=== PATIENT | female | born 1945 | race Caucasian/White ===

== ENCOUNTER 2020-08-08 08:30 | Day surgery (SDC) | payer MEDICARE ==
[2020-08-07 10:30] LABS: BASOPHILS % (AUTO) 0.8 % (0-1); EOSINOPHILS # (AUTO) 0.1 X10'3 (0-0.9); EOSINOPHILS % (AUTO) 1.7 % (0-6); HEMOGLOBIN 11.9 g/dl (12.0-16.0); LYMPHOCYTES # (AUTO) 2.1 X10'3 (1.1-4.8); LYMPHOCYTES % (AUTO) 38.4 % (21-51); MEAN CORPUSCULAR HEMOGLOBIN 31.4 PG (27.0-31.0); MEAN CORPUSCULAR HGB CONC 32.2 g/dL (33.0-36.5); MEAN CORPUSCULAR VOLUME 97.5 FL (78-98); MEAN PLATELET VOLUME 8.8 FL (7.4-10.4); MONOCYTES # (AUTO) 0.6 X10'3 (0-0.9); MONOCYTES % (AUTO) 10.1 % (2-12); NEUTROPHILS # (AUTO) 2.7 X10'3 (1.8-7.7); PLATELET COUNT 220 X10'3 (140-440); WHITE BLOOD COUNT 5.5 X10'3 (4.5-11.0)
[2020-08-07 10:42] LABS: ALBUMIN 3.1 G/DL (3.4-5.0); ANION GAP 9 (8-16); BLOOD UREA NITROGEN 11 MG/DL (7-18); BUN/CREATININE RATIO 13.9 (6.6-38.0); CALCIUM 8.6 MG/DL (8.5-10.1); CHLORIDE 110 MMOL/L (99-107); CREATININE 0.79 MG/DL (0.40-0.90); GLUCOSE 92 MG/DL (70-104); POTASSIUM 3.9 MMOL/L (3.5-5.1); SODIUM 148 MMOL/L (135-145); TOTAL CARBON DIOXIDE 29.2 MMOL/L (24-32); eGFR 71 ML/MIN
[2020-08-07 10:44] LABS: PARTIAL THROMBOPLASTIN TIME 27 SECONDS (22-32)
[2020-08-08] VITALS (10 sets, daily range): BP systolic 114–143; BP diastolic 49–105
[~2020-08-08] VITALS: Ht 162.6 cm; Wt 93.5 kg
[2020-08-08] MEDS ORDERED: normal saline 1,000 ML IV SCH (09:05)
[2020-08-08] MEDS ORDERED: diphenhydrAMINE 25mg capsule PO PRN (09:05)
[2020-08-08] MEDS ORDERED: LORazepam 0.5 MG tablet PO PRN (09:05)
[2020-08-08] MEDS ORDERED: SOTA80TA46 PO (09:09)
[2020-08-08] MEDS ORDERED: PANT40TA54 PO (09:09)
[2020-08-08] MEDS ORDERED: ASPI-83 PO (09:09)
[2020-08-08] MEDS ORDERED: B2/V1TAB PO (09:09)
[2020-08-08] MEDS ORDERED: IRON-12 PO (09:09)
[2020-08-08] MEDS ORDERED: AMIT-189 PO (09:09)
[2020-08-08] MEDS ORDERED: ALEN70TA60 PO (09:09)
[2020-08-08] MEDS ORDERED: OMEG1CAP PO (09:09)
[2020-08-08] MEDS ORDERED: LORA-269 PO (09:09)
[2020-08-08] MEDS ORDERED: FEXO180T94 PO (09:09)
[2020-08-08] MEDS ORDERED: ERGO500041 PO (09:09)
[2020-08-08] MEDS ORDERED: ALB0.5UD IH (09:09)
[2020-08-08] MEDS ORDERED: CALC-336 PO (09:09)
[2020-08-08] MEDS ORDERED: MULT-955 PO (09:09)
[2020-08-08] MEDS ORDERED: LIDOcaine/PRILOcaine 5gm cream TP ONE (09:50)
[2020-08-08] MEDS ORDERED: nitroGLYCERIN-Tridil 50MG/D5W 250 ML IV ONE (10:27)
[2020-08-08] MEDS ORDERED: heparin 1,000unit/ml 10ml vial 10 ML ONE (10:28)
[2020-08-08] MEDS ORDERED: iohexol 350MG/ML 100ml bottle IV ONE (10:28)
[2020-08-08] MEDS ORDERED: midazolam 1 mg/ML 2ml injection ONE (10:28)
[2020-08-08] MEDS ORDERED: verapamil 2.5 mg/ml inj IV ONE (10:28)
[2020-08-08] MEDS ORDERED: iohexol 350 MG/ML 50ML vial IV ONE (10:28)
[2020-08-08] MEDS ORDERED: fentaNYL/PF 50MCG/1 ML 2ML syringe ONE (10:28)
[2020-08-08] MEDS ORDERED: LIDOcaine 1% (10mg/ml)w/preservative injection 20ml MDV ONE (10:28)
--- NOTE | 2020-08-08 10:30 | NUR ---
Pt left floor for procedure.
[2020-08-08] MEDS ORDERED: normal saline 1000ml 1,000 ML IV SCH (12:10)
[2020-08-08] MEDS ORDERED: HYDROcodone/acetaminophen 10/325mg tab PO PRN (13:15)
[2020-08-08] MEDS ORDERED: HYDROcodone/acetaminophen 5mg/325mg tablet PO PRN (13:15)
[2020-08-08 16:18] LABS: ISTAT Hct MIX 31 %PCV (35-48); ISTAT O2 SATURATION MIX VENOUS 65 % (60-80); ISTAT SOURCE BLNK
[2020-08-08 16:19] LABS: ISTAT HGB ART 10.9 g/dl (12.0-16.0); ISTAT Hct ART 32 %PCV (35-48); ISTAT O2 SATURATION ARTERIAL 98 % (95-98); ISTAT SOURCE BLNK
[2020-08-08] MEDS ORDERED: ACETYLCYSTEINE 200 MG/1 ML 4 ML ORAL SOLUTION PO SCH (20:00)
== END 2020-08-08 17:00 | disposition home or self-care (01) ==
LOC: SSTAY O 08:30
PROVIDERS: ATTEND Internal Medicine Cardiovascular Disease
DX: R07.9 Chest pain, unspecified (principal); E11.9 Type 2 diabetes mellitus without complications; I35.0 Nonrheumatic aortic (valve) stenosis; I48.91 Unspecified atrial fibrillation; G47.30 Sleep apnea, unspecified; K21.9 Gastro-esophageal reflux disease without esophagitis; E78.5 Hyperlipidemia, unspecified; E66.9 Obesity, unspecified; I50.9 Heart failure, unspecified; Z90.710 Acquired absence of both cervix and uterus; Z98.890 Other specified postprocedural states; Z82.49 Family history of ischemic heart disease and other diseases of the circulatory system; Z88.8 Allergy status to other drugs, medicaments and biological substances; Z95.0 Presence of cardiac pacemaker
CPT/HCPCS: 36415; 76937; 80048; 82803; 85014; 85025; 85610; 85730; 93005; 93460; 93567; 99152; 99153; C1769; C1894; J1644; J2001; J2250; J3010; J7030; Q0163; Q9967; A4620; A5120; A6258; C1751; J3490

== ENCOUNTER 2020-10-22 14:42 | Outpatient (CLI) | payer MEDICARE ==
[~2020-10-22 14:42] MED LIST: ALB0.5UD IH; ALEN70TA60 PO; AMIT-189 PO; ASPI-83 PO; CALC-336 PO; ERGO500041 PO; FEXO180T94 PO; IRON-12 PO; LORA-269 PO; MULT-955 PO; OMEG1CAP PO; PANT40TA54 PO; SOTA80TA46 PO
== END 2020-10-22 23:59 | disposition home or self-care (01) ==
LOC: CARD DIAG 14:42
PROVIDERS: ATTEND Internal Medicine Cardiovascular Disease
DX: I08.1 Rheumatic disorders of both mitral and tricuspid valves (principal)
CPT/HCPCS: 93005; 93308

== ENCOUNTER 2021-08-12 11:11 | Day surgery (SDC) | payer MEDICARE ==
[~2021-08-12] VITALS: Ht 157.5 cm; Wt 89.9 kg
[2021-08-12] VITALS (9 sets, daily range): BP systolic 126–155; BP diastolic 66–99
[~2021-08-12 11:11] MED LIST changes: -OMEG1CAP PO; +OMEG1CAP61 PO
[2021-08-12] MEDS ORDERED: ceFAZolin inj. 2,000 MG in normal saline soln 50 ML IV ONE (11:45)
[2021-08-12] MEDS ORDERED: normal saline 1000ml 1,000 ML IV PRN (11:45)
[2021-08-12] MEDS ORDERED: ceFAZolin 2gm in dextrose, iso 50 ML IV ONE (11:46)
[2021-08-12] MEDS ORDERED: normal saline 1,000 ML IV SCH (11:50)
[2021-08-12] MEDS ORDERED: acetylcysteine 200 MG/ml 4ml vial PO PRN (11:50)
[2021-08-12] MEDS ORDERED: diphenhydrAMINE 25mg capsule PO PRN (11:50)
[2021-08-12] MEDS ORDERED: ASPI81TA52 PO (11:53)
[2021-08-12 12:26] LABS: BASOPHILS % (AUTO) 0.6 % (0-1); EOSINOPHILS # (AUTO) 0.1 X10'3 (0-0.9); EOSINOPHILS % (AUTO) 0.8 % (0-6); HEMATOCRIT 37.5 % (35.0-45.0); HEMOGLOBIN 12.1 g/dl (12.0-16.0); LYMPHOCYTES # (AUTO) 1.9 X10'3 (1.1-4.8); MEAN CORPUSCULAR HEMOGLOBIN 31.1 PG (27.0-31.0); MEAN CORPUSCULAR HGB CONC 32.2 g/dL (33.0-36.5); MEAN CORPUSCULAR VOLUME 96.4 FL (78-98); MEAN PLATELET VOLUME 9.3 FL (7.4-10.4); MONOCYTES # (AUTO) 0.5 X10'3 (0-0.9); MONOCYTES % (AUTO) 6.9 % (2-12); NEUTROPHILS # (AUTO) 4.4 X10'3 (1.8-7.7); NEUTROPHILS % (AUTO) 64.7 % (42-75); PLATELET COUNT 181 X10'3 (140-440); RED BLOOD COUNT 3.89 X10'6 (4.20-5.60); RED CELL DISTRIBUTION WIDTH 14.2 % (11.5-14.5); WHITE BLOOD COUNT 6.9 X10'3 (4.5-11.0)
[2021-08-12] MEDS ORDERED: LIDOcaine/PRILOcaine 5gm cream TP ONE (12:30)
[2021-08-12 12:33] LABS: ALBUMIN 3.2 G/DL (3.4-5.0); ANION GAP 7 (8-16); BLOOD UREA NITROGEN 14 MG/DL (7-18); BUN/CREATININE RATIO 20.6 (6.6-38.0); CALCIUM 8.3 MG/DL (8.5-10.1); CHLORIDE 105 MMOL/L (99-107); CREATININE 0.68 MG/DL (0.40-0.90); GLUCOSE 87 MG/DL (70-104); SODIUM 142 MMOL/L (135-145); TOTAL CARBON DIOXIDE 30.3 MMOL/L (24-32); eGFR 84 ML/MIN
[2021-08-12 12:38] LABS: APTT 29 SECONDS (22-32)
[2021-08-12] MEDS ORDERED: LIDOcaine 1% (10mg/ml)w/preservative inj. 20ml MDV ONE (13:04)
[2021-08-12] MEDS ORDERED: fentaNYL/PF 50MCG/1 ML 2ML syringe ONE (13:04)
[2021-08-12] MEDS ORDERED: nitroGLYCERIN-Tridil 50MG/D5W 250 ML IV ONE (13:04)
[2021-08-12] MEDS ORDERED: midazolam 1 mg/ML 2ml injection ONE ×2 (13:04→14:55)
[2021-08-12] MEDS ORDERED: verapamil 2.5 mg/ml inj IV ONE (13:04)
[2021-08-12] MEDS ORDERED: iohexol 350 MG/ML 50ML vial IV ONE (13:05)
[2021-08-12] MEDS ORDERED: heparin 1,000unit/ml 10ml vial 0 ML ONE (13:05)
[2021-08-12] MEDS ORDERED: iohexol 350MG/ML 100ml bottle IV ONE (13:05)
[2021-08-12] MEDS ORDERED: LIDOcaine 1% W/epiNEPHrine 1:100,000 20ml vial ONE (13:06)
[2021-08-12] MEDS ORDERED: ceFAZolin 1000mg inj ONE (13:07)
[2021-08-12] MEDS ORDERED: normal saline 1000ml 1,000 ML IV SCH (16:00)
[2021-08-12] MEDS ORDERED: HYDROcodone/acetaminophen 10/325mg tab PO PRN (16:05)
[2021-08-12] MEDS ORDERED: HYDROcodone/acetaminophen 5mg/325mg tablet PO PRN (16:05)
[2021-08-12] MEDS ORDERED: vancomycin/NS 1 GM ADD-VANTAGE 250 ML IV ONE (16:10)
== END 2021-08-12 20:05 | disposition home or self-care (01) ==
LOC: SSTAY O 11:11
PROVIDERS: ATTEND Internal Medicine Cardiovascular Disease
DX: Z45.010 Encounter for checking and testing of cardiac pacemaker pulse generator [battery] (principal); R94.39 Abnormal result of other cardiovascular function study; I25.10 Atherosclerotic heart disease of native coronary artery without angina pectoris; I11.0 Hypertensive heart disease with heart failure; I50.9 Heart failure, unspecified; I35.0 Nonrheumatic aortic (valve) stenosis; I48.0 Paroxysmal atrial fibrillation; E78.5 Hyperlipidemia, unspecified; E11.9 Type 2 diabetes mellitus without complications; G47.30 Sleep apnea, unspecified; Z95.2 Presence of prosthetic heart valve; Z90.710 Acquired absence of both cervix and uterus; Z79.01 Long term (current) use of anticoagulants; Z79.899 Other long term (current) drug therapy; Z98.890 Other specified postprocedural states; Z98.84 Bariatric surgery status; Z88.8 Allergy status to other drugs, medicaments and biological substances; Z83.6 Family history of other diseases of the respiratory system; Z82.49 Family history of ischemic heart disease and other diseases of the circulatory system
CPT/HCPCS: 33228; 36415; 80048; 85025; 85610; 85730; 93005; 93458; 99152; 99153; C1769; C1785; C1894; J0690; J1644; J2250; J3010; J3370; J3490; J7030; Q0163; Q9967; A4620; A6258

== ENCOUNTER 2021-09-26 12:49 | Outpatient (CLI) | payer MEDICARE ==
[~2021-09-26] VITALS: Ht 157.5 cm; Wt 89.6 kg
[~2021-09-26 12:49] MED LIST changes: -ASPI-83 PO; +ASPI81TA52 PO
[2021-09-26 14:54] VITALS: BP 149/35
--- NOTE | 2021-09-26 14:55 | NUR ---
Patient was seen today for TAVR follow-up with Dr. Nuria Wood. KCQ12 completed. Walk test completed. Vital signs measured. Echo and EKG reviewed with patient along with current condition of patients symptoms.
== END 2021-09-26 23:59 | disposition home or self-care (01) ==
LOC: CARD DIAG 12:49
PROVIDERS: ATTEND Internal Medicine Cardiovascular Disease
DX: Z48.812 Encounter for surgical aftercare following surgery on the circulatory system (principal); I34.0 Nonrheumatic mitral (valve) insufficiency; I51.7 Cardiomegaly; I25.2 Old myocardial infarction; Z95.2 Presence of prosthetic heart valve
CPT/HCPCS: 93005; 93306

== ENCOUNTER 2022-09-12 09:02 | Day surgery (SDC) | payer MEDICARE ==
[2022-09-11 11:39] LABS: BASOPHILS % (AUTO) 0.6 % (0-1); EOSINOPHILS # (AUTO) 0.1 X10'3 (0-0.9); EOSINOPHILS % (AUTO) 1.2 % (0-6); HEMATOCRIT 36.1 % (35.0-45.0); HEMOGLOBIN 11.7 g/dl (12.0-16.0); LYMPHOCYTES # (AUTO) 2.1 X10'3 (1.1-4.8); LYMPHOCYTES % (AUTO) 32.5 % (21-51); MEAN CORPUSCULAR HEMOGLOBIN 31.3 PG (27.0-31.0); MEAN CORPUSCULAR HGB CONC 32.3 g/dL (33.0-36.5); MEAN CORPUSCULAR VOLUME 97.1 FL (78-98); MEAN PLATELET VOLUME 9.2 FL (7.4-10.4); MONOCYTES # (AUTO) 0.6 X10'3 (0-0.9); NEUTROPHILS # (AUTO) 3.6 X10'3 (1.8-7.7); NEUTROPHILS % (AUTO) 56.7 % (42-75); PLATELET COUNT 169 X10'3 (140-440); RED BLOOD COUNT 3.72 X10'6 (4.20-5.60); RED CELL DISTRIBUTION WIDTH 14.2 % (11.5-14.5); WHITE BLOOD COUNT 6.4 X10'3 (4.5-11.0)
[2022-09-11 11:47] LABS: ALBUMIN 3.2 G/DL (3.4-5.0); ANION GAP 5 (8-16); BLOOD UREA NITROGEN 8 MG/DL (7-18); BUN/CREATININE RATIO 12.9 (10.0-20.0); CALCIUM 8.6 MG/DL (8.5-10.1); CHLORIDE 107 MMOL/L (99-107); CREATININE 0.62 MG/DL (0.40-0.90); GLUCOSE 97 MG/DL (70-104); SODIUM 143 MMOL/L (135-145); TOTAL CARBON DIOXIDE 31.1 MMOL/L (24-32); eGFR > 90 ML/MIN
[2022-09-11 11:48] LABS: APTT 28 SECONDS (22-32)
[2022-09-12] VITALS (8 sets, daily range): BP systolic 117–156; BP diastolic 60–84
[~2022-09-12] VITALS: Ht 157.5 cm; Wt 87.0 kg
[~2022-09-12 09:02] MED LIST changes: -AMIT-189 PO; +AMIT50TA15 PO
[2022-09-12] MEDS ORDERED: normal saline 1,000 ML IV SCH (09:20)
[2022-09-12] MEDS ORDERED: diphenhydrAMINE 25mg capsule PO PRN (09:20)
[2022-09-12] MEDS ORDERED: LORazepam 0.5 MG tablet PO PRN (09:30)
[2022-09-12] MEDS ORDERED: ASPI-1264 PO (10:27)
[2022-09-12] MEDS ORDERED: OMEG-5 PO (10:27)
[2022-09-12] MEDS ORDERED: OMEG1CAP61 PO (10:38)
[2022-09-12] MEDS ORDERED: FERR236T3 PO (10:38)
[2022-09-12] MEDS ORDERED: OSC500T PO (10:38)
[2022-09-12] MEDS ORDERED: AMIT50TA15 PO (10:38)
[2022-09-12] MEDS ORDERED: nitroGLYCERIN-Tridil 50MG/D5W 250 ML IV ONE (12:34)
[2022-09-12] MEDS ORDERED: iohexol 350 MG/ML 50ML vial IV ONE (12:35)
[2022-09-12] MEDS ORDERED: LIDOcaine 1% (10mg/ml) 2ml vial ONE (12:35)
[2022-09-12] MEDS ORDERED: midazolam 1 mg/ML 2ml injection ONE (12:35)
[2022-09-12] MEDS ORDERED: heparin 1,000unit/ml 10ml vial 10 ML ONE (12:35)
[2022-09-12] MEDS ORDERED: verapamil 2.5 mg/ml inj IV ONE (12:35)
[2022-09-12] MEDS ORDERED: iohexol 350MG/ML 100ml bottle IV ONE (12:35)
[2022-09-12] MEDS ORDERED: fentaNYL/PF 50MCG/1 ML 2ML syringe ONE (12:35)
== END 2022-09-12 17:00 | disposition home or self-care (01) ==
LOC: SSTAY O 09:02
PROVIDERS: ATTEND Internal Medicine Cardiovascular Disease
DX: I25.10 Atherosclerotic heart disease of native coronary artery without angina pectoris (principal); I49.5 Sick sinus syndrome; I48.0 Paroxysmal atrial fibrillation; E78.5 Hyperlipidemia, unspecified; I11.0 Hypertensive heart disease with heart failure; I50.9 Heart failure, unspecified; I35.0 Nonrheumatic aortic (valve) stenosis; J45.909 Unspecified asthma, uncomplicated; K21.9 Gastro-esophageal reflux disease without esophagitis; E66.9 Obesity, unspecified; Z68.35 Body mass index [BMI] 35.0-35.9, adult; G47.30 Sleep apnea, unspecified; Z95.0 Presence of cardiac pacemaker; Z98.84 Bariatric surgery status; Z95.2 Presence of prosthetic heart valve; Z90.710 Acquired absence of both cervix and uterus; Z98.890 Other specified postprocedural states; Z88.8 Allergy status to other drugs, medicaments and biological substances; Z79.82 Long term (current) use of aspirin; Z79.899 Other long term (current) drug therapy; Z82.49 Family history of ischemic heart disease and other diseases of the circulatory system
CPT/HCPCS: 36415; 76937; 80048; 85025; 85610; 85730; 93005; 93458; 99152; 99153; A6258; J1644; J2250; J3010; J3490; J7030; Q0163; Q9967; A6402; C1725; C1894

== ENCOUNTER 2025-03-07 02:33 | Observation (INO) | payer MEDICARE ==
[2025-03-07] VITALS (20 sets, daily range): BP systolic 92–181; BP diastolic 29–58; PULSE 60–72; RESP 14–24; TEMP 97.3–97.7; O2SAT 95–100
[~2025-03-07] VITALS: Ht 157.5 cm; Wt 81.0 kg
[~2025-03-07 02:33] MED LIST changes: +ASPI-1264 PO; -ASPI81TA52 PO; -CALC-336 PO; +ERGO125018 PO; -ERGO500041 PO; +FERR236T3 PO; -FEXO180T94 PO; -IRON-12 PO; +OMEG-5 PO; +OSC500T PO
--- NOTE | 2025-03-07 03:16 | ELECTROCARDIOGRAPH REPORT ---
[facility] Test Date: 2025-03-07 Test Time: 03:14:30 Pat Name: RESHMA BLAKELY Department: [facility]-ER Patient ID: [id number] Room: [place] [address] Gender: F Engineering Mgr: RAMON : 1945 Requested By: MEHRAN ESCOBAR Order Number: [id number] Reading MD: Dr. Hayes Serrano Measurements Intervals [place] Rate: 67 P: 0 DC: 221 QRS: 36 QRSD: 118 T: 59 QT: 413 QTc: 436 Interpretive Statements Atrial-paced complexes Prolonged DC interval Nonspecific intraventricular conduction delay Anterior infarct, old Electronically Signed On 03-07-2025 20:42:[address] Hayes Serrano Please click the below link to view image of tracing.
--- NOTE | 2025-03-07 03:31 | RADIOLOGY REPORT ---
CHEST RADIOGRAPH Indication: chest pain Technique: Single frontal view of the chest was obtained COMPARISON: CHEST,SINGLE VIEW on DOS: 09/28/20, CHEST,TWO VIEWS on DOS: 09/20/20, CHEST,TWO VIEWS on DOS: 08/20/20 FINDINGS: Lines and Tubes: None. Left anterior chest wall cardiac pacing device. Lungs: Clear Pleura: No effusion. No pneumothorax. Cardiomediastinal contours: Unremarkable Bones: Unremarkable IMPRESSION: 1. No acute disease.
[2025-03-07 03:37] LABS: MEAN PLATELET VOLUME 8.3 FL (7.4-10.4); RED CELL DISTRIBUTION WIDTH 16.6 % (11.5-14.5)
--- NOTE | 2025-03-07 03:42 | Physician Documentation ---
History of Present Illness ~ Chief Complaint: Chest Pain Stated Complaint: CHEST PAINS M ALS Time Seen by MD: 02:39 Primary Medical Doctor: Dr. Iqbal Mode of Arrival: EMS HPI Patient reports chest pain started 03/06 @1400 starting on left side of chest that was stabbing and radiating to her left shoulder and up to her jaw. She was BIB EMS from [facility] in [place] where there was a concern for unstable angina. No reported chest pain at this time. Patient recently had bronchitis/PNA and has been on steroids, just finished antibiotics. Patient of [place]. Medication Reconciliation Allergies: Coded Allergies: ibuprofen (Verified Allergy, Unknown, 08/08/20) montelukast (Verified Allergy, Unknown, 08/08/20) Scheduled Alendronate Sodium* (Fosamax*), 1 TAB PO Q7D, (Reported) Amitriptyline Hcl* (Elavil*), 1 TAB PO HS, (Reported) Aspirin* (Aspirin*), 1 TAB PO DAILY, (Reported) Calcium Carbonate* (Oscal*), 1 TAB PO DAILY, (Reported) Docosahexanoic Acid/Epa (Fish Oil 1,000 Mg Softgel), 1 CAP PO DAILY, (Reported) Ergocalciferol (Vitamin D2) (Vitamin D2), 1 CAP PO Q7D, (Reported) Ferrous Gluconate (Iron), 1 TAB PO DAILY, (Reported) Multivitamin (Daily Value), 1 TAB PO DAILY, (Reported) [place]-3 Acid Ethyl Esters* (Lovaza*), 1 CAP PO DAILY, (Reported) Pantoprazole Sodium (Pantoprazole Sodium), 1 TAB PO DAILY, (Reported) Sotalol HCl (Sotalol), 1 TAB PO Q12H, (Reported) Scheduled PRN Albuterol Sulfate Nebs* (Proventil Nebs*), 2.5 MG IH Q4H PRN for SOB or wheezing, (Reported) Lorazepam (Ativan), 1 TAB PO HS PRN for sleep, (Reported) Review of Systems All Other Systems at this time: Reviewed and Negative Physical Exam Vital Signs: RN Vital Signs have been reviewed: Yes, Temperature: 98.0, Source: Oral, Heart Rate: 60, Respiratory Rate: 16, BP: 125/56, Pulse Oximetry: 98, Weight: 81.820 Oxygen Flow Rate: 0 Physical Exam General: Alert, no apparent distress. Neck: Full range of motion. Respiratory: Lungs clear, no respiratory distress. Chest: No accessory muscle use. Cardiovascular: Regular rate and rhythm, no murmurs. Gastrointestinal: Soft,TTP, nondistended. Bowels sounds present. Extremities: Normal range of motion, no deformity. Neurologic: Oriented x4. Psychiatric: Normal mood and affect. Skin: Normal color, warm and dry. No edema, no ecchymosis. Progress Results/Orders Results/Orders Orders - MEHRAN ESCOBAR MD Monitor (03/07/25 03:03) Saline Lock (03/07/25 03:03) Oxygen (03/07/25 03:03) Hs Troponin I W Calculations (03/07/25 05:03) Hs Troponin I W Calculations (03/07/25 06:03) Chest,Single View (03/07/25 03:20) Completed Orders - MEHRAN ESCOBAR MD Cbc/Diff (03/07/25 03:03) BMP (03/07/25 03:03) PBNP (03/07/25 03:03) Electrocardiogram (03/07/25 03:03) Hs Troponin I W Calculations (03/07/25 03:03) Chest,Single View (03/07/25 03:20) Lipid Panel (03/07/25 03:24) Vital Signs 03/07/25 03/07/25 03/07/25 03/07/25 02:39 02:49 03:19 03:50 Temp 98.0 Pulse 62 60 63 Resp 20 12 16 16 B/P (MAP) 125/56 125/56 (79) 114/48 (70) Pulse Ox 98 98 100 O2 Flow Rate 0 03/07/25 04:00 Pulse 60 Resp 16 B/P (MAP) 131/53 (79) Pulse Ox 100 Laboratory Tests Test 03/07/25 03:24 White Blood Count 6.6 Red Blood Count 3.41 L Hemoglobin 10.5 L Hematocrit 31.8 L Mean Corpuscular Volume 93.0 Mean Corpuscular Hemoglobin 30.6 Mean Corpuscular Hemoglobin Concent 32.9 L Red Cell Distribution Width 16.6 H Platelet Count 215 Mean Platelet Volume 8.3 Neutrophils (%) (Auto) 57.3 Lymphocytes (%) (Auto) 31.8 Monocytes (%) (Auto) 8.7 Eosinophils (%) (Auto) 1.1 Basophils (%) (Auto) 1.1 H Neutrophils # (Auto) 3.8 Lymphocytes # (Auto) 2.1 Monocytes # (Auto) 0.6 Eosinophils # (Auto) 0.1 Basophils # (Auto) 0.1 CBC Comment Sodium Level 145 Potassium Level 3.9 Chloride Level 111 H Carbon Dioxide Level 30.9 Anion Gap 3 L Blood Urea Nitrogen 7 Creatinine 0.64 Estimated GFR/1.73 m2 89 BUN/Creatinine Ratio 10.9 Glucose Level 98 Calcium Level 7.9 L Troponin I High Sensitivity 13 Pro-B-Type Natriuretic Peptide 328 Albumin 2.6 L Triglycerides Level 92 Cholesterol Level 120 LDL Cholesterol 65 HDL Cholesterol 43 Cholesterol/HDL Ratio 2.8 Chemistry Comments Medical Decision Making Additional information obtaine: N/A Findings 80 year old female with chest pain, resolved. Care transferred to hospitalist. Workup here negative. Heart Score: 68327 Differential Dx:Considerations: Include: angina, chest wall pain, herpes zoster, myocardial infarction, pleuritis, pancreatitis, pneumonia, pneumothorax, pulmonary embolus, other Departure Disposition: 09 ADMITTED INPATIENT Admitted to Inpatient Unit: to hospitalist Admission Level of Care: Med/Surg with Tele Impression: Primary Impression: Chest pain Discharge Instructions: Nonspecific Chest Pain, Adult Referrals: NO PRIMARY CARE PROVIDER (PCP) Education Educated: Patient Educated regarding: diagnosis, treatment, prognosis, need for follow up Signature Scribe Signature: . Attestation: MEHRAN RODRIGUEZ MD Mar 07, 2025 03:42
[2025-03-07 04:00] LABS: CREATININE 0.64 MG/DL (0.40-0.90); PRO BRAIN NATRIURETIC PEPTIDE 328 PG/ML (0-450); TOTAL CARBON DIOXIDE 30.9 MMOL/L (24-32); eCRCL 55 ML/MIN; eGFR 89 ML/MIN
[2025-03-07] MEDS ORDERED: mag hydrox/Alum hydrox/simeth 30ml oral suspension PO PRN (04:15)
[2025-03-07] MEDS ORDERED: magnesium hydroxide 30ml (MOM) UD suspension PO PRN (04:15)
[2025-03-07] MEDS ORDERED: magnesium sulf-water 2g/50mL 50 ML IV PRN (04:15)
[2025-03-07] MEDS ORDERED: HYDROcodone/acetaminophen 5mg/325mg tablet PO PRN (04:15)
[2025-03-07] MEDS ORDERED: potassium Cl 40MEQ/1/2NS 520ml 520 ML IV PRN (04:15)
[2025-03-07] MEDS ORDERED: magnesium Cl slow-release 64mg tablet PO PRN (04:15)
[2025-03-07] MEDS ORDERED: magnesium sulf-water 4G/100mL 100 ML IV PRN (04:15)
[2025-03-07] MEDS ORDERED: potassium Cl 20 mEq SR tablet PO PRN ×2 (04:15)
--- NOTE | 2025-03-07 04:18 | HISTORY AND PHYSICAL-Residence ---
History & Physical Providers to CC Resident Creating Document: TAYLOR BURGOS, RES CC: BARON WASHINGTON MD ~ History of Present Illness Primary Medical Doctor: Dr. Iqbal Reason for Admit\Complaint: Chest pain History of Present Illness An 80-year-old female patient with a medical history of asthma, atrial fibrillation (on Eliquis), TAVR, and a pacemaker was transferred from [facility]. According to the patient, she experienced shortness of breath, palpitations, and chest pain while driving, and she also felt lightheaded. She returned home, hoping her symptoms would improve, but while cooking, she experienced the pain again and decided to visit the emergency department at [facility]. ED course in [facility]: The patient reported chest pain, rating it as 6/10, with radiation to her left shoulder and she was given two sublingual nitrates, which relieved her pain. She also received a full dose of aspirin in the emergency department. The evaluation for her chest pain included serial troponin tests, which were negative, and an ECG that showed no acute changes. A chest X-ray reported cardiomegaly with no obvious effusion or infiltrates. The patient expressed a desire to be transferred to our hospital because she felt more comfortable with Dr. Iqbal, her check totaler. Presentation to our hospital, patient denied any chest pain on arrival. Serial troponins were negative. As per patient, she underwent stress testing a Dr. Iqbal's clinic three months ago which was negative. The patient lives alone in her house and normally mobilizes independently. Her primary care physician is from [facility]. Allergies: Coded Allergies: ibuprofen (Verified Allergy, Unknown, 08/08/20) montelukast (Verified Allergy, Unknown, 08/08/20) Home Medications Home Medications Active Reported Oscal* (Calcium Carbonate) 500 Mg Tablet 1 Tab PO DAILY Lovaza* ([place]-3 Acid Ethyl Esters*) 1 Gm Capsule 1 Cap PO DAILY Iron (Ferrous Gluconate) 236 Mg Tablet 1 Tab PO DAILY 30 Days Elavil* (Amitriptyline HCl) 50 Mg Tablet 1 Tab PO HS Fish Oil 1,000 Mg Softgel (Docosahexanoic Acid/Epa) 1 Each Capsule 1 Cap PO DAILY 30 Days WITH MEALS Aspirin* (Aspirin) 325 Mg Tablet 1 Tab PO DAILY 30 Days Proventil Nebs* (Albuterol) 2.5 Mg/0.5 Ml Vial.neb 2.5 Mg IH Q4H PRN Sotalol (Sotalol HCl) 80 Mg Tablet 1 Tab PO Q12H 30 Days Fosamax* (Alendronate Sodium) 70 Mg Tablet 1 Tab PO Q7D 28 Days in the morning, at least 30 minutes before the first food, beverage, or medication of the day Pantoprazole Sodium 40 Mg Tablet.dr 1 Tab PO DAILY 30 Days Vitamin D2 (Ergocalciferol (Vitamin D2)) 1,250 Mcg Capsule 1 Cap PO Q7D 28 Days Daily Value (Multivitamin) 1 Each Tablet 1 Tab PO DAILY 30 Days Ativan (Lorazepam) 1 Mg Tablet 1 Tab PO HS PRN 30 Days Past Medical History Past Medical History TAVR-four years ago Atrial fibrillation on Eliquis Pacemaker by Dr. Iqbal 10 years ago Sleep apnea Asthma Bilateral knees and hip arthritis Dry eyes Osteoporosis Fibromyalgia Past Surgical History Surgical History Comment Gastrectomy 18 years ago Bilateral carpal tunnel surgery Hysterectomy Cataract Left elbow surgery Hernia repair Past Social History Social History Comment Patient denied any alcohol/tobacco use/illicit drug use ROS All Other Systems: Reviewed and Negative ROS Constitutional: No fever, dizziness, no weakness, no decrease in appetite HEENT: Normal vision. No sore throat, epistaxis, tinnitus Cardiovascular: No chest pain/discomfort, palpitations, syncope. no pedal edema Respiratory: No sob, cough,hemoptysis Gastrointestinal: No abdominal pain, nausea, vomiting. No diarrhea, melena. Genitourinary: No frquency, urgency, incontinence, nocturia. No dysuria, hematuria Musculoskeletal: Normal, no pains Endocrine: No fatigue, polydipsia, polyuria. No heat or cold intolerance Neurologic: No headache, vertigo. No weakness, numbness or tingling of extremities Psychiatric: No hallucinations/delusions, no anhedonia, no suicidal ideation Hematologic: No bruises Exam Vitals: Vital Signs Date Time Temp Pulse Resp B/P (MAP) Pulse Ox O2 Delivery O2 Flow Rate FiO2 03/07/25 03:50 63 16 114/48 (70) 100 03/07/25 02:49 0 03/07/25 02:39 98.0 General: General: Awake, oriented to person, place and time HEENT: Conjunctive are pale, sclerae clear, no icterus, pupil is equal in both sides, reactive to light, no ear discharge, no pharyngeal erythema or an edema. Neck: Supple, no JVD, no lymphadenopathy and thyromegaly. Chest: Equal air entry on both lungs, no additional sounds no rhonchi no wheezing at the moment. Left-sided pacemaker in place Cardiovascular: S1-S2 regular sinus rhythm and, regular rate, no gallops, no rubs, no murmurs Abdomen: No visible peristalsis, Bowel sounds present on auscultation, soft, no tenderness, no guarding, no rigidity. Abdominal scar post gastrectomy Extremities: No obvious deformities, no pitting edema bilaterally, capillary refill intact, peripheral pulsations are intact on both sides Neurologic: Mental status: alert and conscious, oriented to place, person and time, preserved memory, normal speech. Cranial nerves I-XII: Normal. Motor system: Preserved power, coordination, no evidenced involuntary movements, strength 5/5 in four extremities. Sensory system: Preserved temperature, pain and vibration sensation. 2+ deep tendon reflexes in biceps, triceps, quadriceps. Negative Babinski. Cerebellar: No nystagmus, dysdiadochokinesia, normal [id number] testing. Musculoskeletal: No joint swelling, deformities, inflammations, and no scoliosis and back tenderness Skin: Warm and dry. Dry oral mucosa. Diagnostic Data Last Recorded Lab Results: 03/07/2532303/07/25323 Advance Care Planning Advanced Care plannin - 30 Minutes (Spent 17 minutes discussing advanced care directive/resuscitative methods patient decided she wanted to be full code) Additional Plan Assessment An 80-year-old female patient with a medical history of asthma, atrial fibrillation (on Eliquis), TAVR, and a pacemaker was transferred from [facility]. She is currently being evaluated for chest pain Chest pain-rule out ACS heart score three(low risk) Currently she reports no chest pain Serial troponins negative at [place], troponins negative in our hospitalist as well;pt recieved full dose of aspirin 325mg and 2 doses of NTG which relived her pain Chest x-ray normal, proBNP normal; EKG showed prolonged RI interval and atrial paced complexes, no acute ST segment elevation Stress test three months ago normal Plan Continue to monitor monitor patient for any chest pain,initiated the patient on 0.4mg SL nitroglycerin prn Telemetry monitoring in place Consult in am Atrial fibrillation Continue patient's home medication Eliquis and sotalol 80 mg b.i.d. once med rec is done Asthma, currently well controlled Patient normally uses albuterol p.r.n., and steroid inhaler As per patient, she was in [place] recently visiting her daughter, she noted increase in intake of rescue inhalers and steroid inhalers and was admitted in ED 3 times for acute asthma exacerbation Currently, no wheezing is heard patient is not in exacerbation Initiated the patient on albuterol q.2h p.r.n. Sleep apnea Patient normally uses CPAP at night Fibromyalgia Continue patient's home medication amitriptyline 50 mg once med rec is done Dry eyes Continue her home home medication eye drops once med rec is done Osteoporosis Patient used to be on medication but stopped taking it a couple of years ago as advised by her primary care doctor Other significant history Patient underwent TAVR in 2020 Patient underwent gastrectomy 19 years ago Allergies: ibuprofen, montelukast Code Status: Full code DVT Prophylaxis: Eliquis Lines/Tubes: PIV Nutrition: Heart healthy diet PT:yes Prognosis: Guarded Disposition: Consult in am, follow up with the echocardiogram Taylor Burgos MD Internal medicine resident,PGY-1 [place] Addendum #1 Neuro: - Monitor for delirium - Assess for potential impact of medications on lightheadedness and cognitive function #2 CV: Atrial fibrillation, status post TAVR, pacemaker in situ. Pt with CP negative trop, negative EKG - Continue apixaban and aspirin for anticoagulation; monitor for potential bleeding due to dual therapy - Rate control with metoprolol and consider further antiarrhythmic management with sotalol if needed - Assess for pacemaker function as cause of lightheadedness #3 Pulm: Asthma - Continue current home inhalers; assess control based on symptom frequency and peak flow - Use incentive spirometry (IS) to improve lung function - Keep O2 saturation >92% and anticipate adjustments for any acute episodes #4 GI: - Advance diet when cleared by primary #5 Renal: - Monitor renal function for YESIKA - Replete electrolytes as needed #6 ID: - Monitor for signs of infection #7 Endo: - Maintain fasting glucose between 150-180 #8 Heme/Onc: - Monitor for bleeding and thromboembolic events due to anticoagulation therapy - Keep Hgb >7 g/dL and platelets >10 x 10^9/L #9 PPx: - Continue chemical DVT prophylaxis I saw this patient and completed a full visual exam via audio-visual HIPAA compliant technology. Date of Service: Mar 07, 2025 Billing Provider: BARON WASHINGTON MD, JAHNAVI, RES Mar 07, 2025 04:18 JOSHUA LYON MD Mar 07, 2025 16:28
[2025-03-07 04:42] LABS: CHOL/HDL RATIO 2.8 (0.00-4.99); LDL CHOLESTEROL 65 MG/DL (50-100)
[2025-03-07] MEDS: PERFLUTREN PROTEIN-A MICROSPHR (Optison) 0.22 MG/ML 3ML VIAL IV ONE (04:52)
[2025-03-07] MEDS: docusate sod 100mg capsule PO SCH (08:00)
[2025-03-07] MEDS: K and/or MAG REPLACEMENT MC SCH (08:00)
[2025-03-07] MEDS: albuterol 2.5 MG/3 ML nebule NEB PRN (08:14)
[2025-03-07] MEDS ORDERED: sotalol HCl 40mg (1/2 tablet) PO SCH (08:20)
[2025-03-07] MEDS ORDERED: metoprolol tartrate 1mg/ml inj IV PRN (08:20)
[2025-03-07] MEDS: aspirin 81mg, enteric-coated 1 TAB TABLET.DR PO SCH (09:42)
--- NOTE | 2025-03-07 10:48 | CONSULTATION REPORT - RESIDENT ---
Consult Providers to CC Resident Creating Document: UMBERTO VERNON, RES CC: KIMBERLEY REID MD History of Present Illness Reason for Admit\Complaint: Chest pain History of Present Illness An 80-year-old female with PMH of asthma, AFib s/p ppm, s/p TAVR was transferred from [facility] in view of chest pain. Patient stated that she has pressure-like substernal chest pain that radiates to the left arm present on exertion. Patient had associated shortness of breaths and dizziness. Per the patient, patient states that she has chest pain with a severity of 6/10, pressure-like sensation, with radiation to the left arm. Patient's chest pain relieved with two tabs of sublingual nitrate. Patient had a similar episode about eight years ago when it was concluded that she has gastric reflux and was prescribed Protonix. This is Dr. Reid's patient and cardiology team is following the patient. Allergies: Coded Allergies: ibuprofen (Verified Allergy, Unknown, 08/08/20) montelukast (Verified Allergy, Unknown, 08/08/20) Home Medications Home Medications Active Reported Oscal* (Calcium Carbonate) 500 Mg Tablet 1 Tab PO DAILY Lovaza* ([place]-3 Acid Ethyl Esters*) 1 Gm Capsule 1 Cap PO DAILY Iron (Ferrous Gluconate) 236 Mg Tablet 1 Tab PO DAILY 30 Days Elavil* (Amitriptyline HCl) 50 Mg Tablet 1 Tab PO HS Fish Oil 1,000 Mg Softgel (Docosahexanoic Acid/Epa) 1 Each Capsule 1 Cap PO DAILY 30 Days WITH MEALS Aspirin* (Aspirin) 325 Mg Tablet 1 Tab PO DAILY 30 Days Proventil Nebs* (Albuterol) 2.5 Mg/0.5 Ml Vial.neb 2.5 Mg IH Q4H PRN Sotalol (Sotalol HCl) 80 Mg Tablet 1 Tab PO Q12H 30 Days Fosamax* (Alendronate Sodium) 70 Mg Tablet 1 Tab PO Q7D 28 Days in the morning, at least 30 minutes before the first food, beverage, or medication of the day Pantoprazole Sodium 40 Mg Tablet.dr 1 Tab PO DAILY 30 Days Vitamin D2 (Ergocalciferol (Vitamin D2)) 1,250 Mcg Capsule 1 Cap PO Q7D 28 Days Daily Value (Multivitamin) 1 Each Tablet 1 Tab PO DAILY 30 Days Ativan (Lorazepam) 1 Mg Tablet 1 Tab PO HS PRN 30 Days Past Medical History Past Medical History TAVR-four years ago Atrial fibrillation on Eliquis Pacemaker by Dr. Reid 10 years ago Sleep apnea Asthma Bilateral knees and hip arthritis Dry eyes Osteoporosis Fibromyalgia Past Surgical History Surgical History Comment Gastrectomy 18 years ago Bilateral carpal tunnel surgery Hysterectomy Cataract Left elbow surgery Hernia repair Past Social History Social History Comment Patient denies alcohol, tobacco use or illicit drug use ROS ROS Constitutional: No fever, chills, dizziness, weight gain or loss Eyes: No pain, erythema, discharge, blurring of vision ENT: No sore throat, epistaxis, tinnitus Cardiovascular: reports Shortness of breath. Chest pressure, chest discomfort, dizziness Respiratory: Shortness of breath present, No hemoptysis Gastrointestinal: Normal appetite. No nausea, vomiting, diarrhea, constipation, hematemesis, abdominal pain, bloating, melena or fresh blood Musculoskeletal: No joint pains Integumentary: No change in skin, hair, nails. No swelling, bruising, abrasions Neurologic: No headache, neck pain, numbness or tingling of the extremities, weakness Psychiatric: No delusions, depression, loss of interest in normal activity or change in sleep pattern, hallucinations, suicidal ideations Endocrine: No fatigue, weakness, polydipsia, polyuria, change in appetite, heat or cold intolerance, sweating, dry skin Exam Vitals: Vital Signs Date Time Temp Pulse Resp B/P (MAP) Pulse Ox O2 Delivery O2 Flow Rate FiO2 03/07/25 08:26 64 18 Room Air 0.0 03/07/25 08:14 97 21 03/07/25 05:40 173/59 (97) 03/07/25 02:39 98.0 General: General: Alert, awake, oriented, not in acute distress HEENT: PERRLA, no icterus, pallor, lymphadenopathy, carotid bruit Respiratory system: Bilateral vesicular breath sounds heard, no adventitious breath sounds CVS: S1-S2 heard, grade 3/6 SM in the pulmonary and aortic area, grade 2/6 HSM present in the tricuspid area GI: Soft, nontender, no organomegaly, no guarding/rigidity, bowel sounds present Neuro: No focal neurological deficits present Mental status exam: alert and consciousness, orientation, memory, speech - Cranial nerve test: Cranial nerves 2-12 intact - Motor system: Nutrition, Tone 3+, Power 5/5, no involuntary movements - Sensory system: Intact - Reflex testing: Biceps, triceps and knee reflexes 2+ - Cerebellar: Normal Extremities: No edema cyanosis clubbing/deformities Skin: Warm and dry Diagnostic Data Last Recorded Lab Results: 03/07/25 0324 03/07/25 0652 Additional Plan Assessment: An 80-year-old female with PMH of asthma, AFib s/p ppm, s/p TAVR was transferred from [facility] in view of chest pain. Cardiology team is following the patient in view of stable angina. Plan: Probable stable angina Negative troponins, normal EKG, a paced Sublingual nitroglycerin 0.4 mg p.r.n. for chest pain Patient is underwent stress test three months ago which was negative for inducible ischemia Follow up with repeat stress test Follow up with echo LDL: 65 Consider optimization with GDM T: Continue sotalol, aspirin 81 mg, losartan 25 mg once daily, atorvastatin 40 mg once daily Sick sinus syndrome s/p ppm 10 years ago Continue Eliquis s/p TAVR in 2020 Code status: Full code Diet: Heart healthy DVT prophylaxis: Eliquis Disposition: Cardiology team will continue to follow up with the patient Umberto Vernon MD Internal Medicine, PGY 2 Patient known to me from my office practice. Patient seen and examined by Dr. Jacob DUDLEY. Echocardiogram from 03/07/2025 reviewed. Overall LVEF is 65-70%. Normal LV size and mildly hyperdynamic function. Mild concentric hypertrophy. RV is normal size and function. Pacemaker wire in right heart. RVSP is mmHg. 23 mm [place] Nancy 3 Ultra bioprosthetic TAVR appears well seated with ni paravalular leaks. LAURIE is measured at 2.07 cmsq, Peak/mean gradients 21/11 mmHg, Peak velocity is measured at 229 m/sec, Mild mitral annular calcification without stenosis. Mild regurgitation. TV appears structurally normal with trace regurgitation. Normal PV without stenosis and mild insufficiency. Normal pericardium. No effusion. Sepsis Screening Reassessment Date: Mar 07, 2025 Date of Service: Mar 07, 2025 Billing Provider: KIMBERLEY REID MD, SIVA, RES Mar 07, 2025 10:48 KIMBERLEY REID MD Mar 07, 2025 13:32
--- NOTE | 2025-03-07 13:31 | CARDIOLOGY REPORT ---
APPROVED REPORT EXAM: Comprehensive 2D, Doppler, and color-flow Echocardiogram. Patient Location: 302 Heart Rate: 80 bpm Rhythm: NSR Indications CHEST PAIN SHORTNESS OF BREATH PALPITATIONS DIZZINESS TAVR 2020 AFIB SUSTAINABILITY EXECUTIVE DIRECTOR: YE LR MD PRIOR ECHOCARDIOGRAM: 09/26/2021 LVEF IS 65-70%; m CLVH; mod LAE; 23 mm Durant Nancy 3 Ultra bioprosthetic TAVR valve well seated, tr PV Leak 6 o'clock, LAURIE 2.79 cm2, peak/mean gradient 20/10 mmHg, peak velocity 2.21 m/sec; m MAC; m MR; tr ALYCE; 2D Dimensions RVDd 3.6 cm IVSd 1.1 (0.7-1.1cm) LVDd 4.3 cm PWd 1.1 (0.7-1.1cm) IVSs 1.7 (0.8-1.2cm) LVDs 2.9 (2.5-4.0cm) PWs 1.6 (0.8-1.2cm) LVOT Diameter 2.30 (1.8-2.4cm) LVEF(%) 65.0 (>50%) FS (%) 32.2 % SV 51.7 ml CO 3.1 L/min M-Mode Dimensions Left Atrium(MM) 4.40 (2.5-4.0cm) Aortic Root 2.68 (2.2-3.7cm) Aortic Cusp Exc 1.40 (1.5-2.0cm) Aortic Valve AoV Peak Ariel. 228.5 cm/s AoV VTI 56.2 cm AO Peak GR. 20.9 mmHg AO Mean GR. 11 mmHg LVOT VTI 27.94 cm LVOT Peak Ariel. 106.5 cm/s LAURIE (VTI) 2.07 cm2 AV DI 0.50 % Mitral Valve MV E Velocity 122.3 cm/s MV Peak Gr. 7 mmHg MV A Velocity 133.5 cm/s MV PHT 72 ms E/A Ratio 0.9 MVA (PHT) 3.06 cm2 MR VMax 566.0 cm/s MV VMax 136.1 cm/s MR PG Max 128.2 mmHg Pulmonary Valve PAEDP 8.26 mmHg Tricuspid Valve TR P. Velocity 268 cm/s RAP ESTIMATE 5 mmHg TR Peak Gr. 29 mmHg RVSP 34 mmHg LEFT VENTRICLE Normal LV size and mildly hyperdynamic function. Mild concentric hypertrophy. Overall LVEF is 65-70%. RIGHT VENTRICLE RV is normal size and function. Pacemaker wire in right heart. RVSP is mmHg. ATRIA Left atrium is mildly dilated. AORTIC VALVE 23 mm Durant Nancy 3 Ultra bioprosthetic TAVR appears well seated with ni paravalular leaks. LAURIE is measured at 2.07 cmsq, Peak/mean gradients 21/11 mmHg, Peak velocity is measured at 229 m/sec, MITRAL VALVE Mild mitral annular calcification without stenosis. Mild regurgitation. TRICUSPID VALVE TV appears structurally normal with trace regurgitation. PULMONIC VALVE Normal PV without stenosis and mild insufficiency. GREAT VESSELS The aortic root is normal in size. The ascending aorta is normal in size. The IVC is normal in size and collapses >50% with inspiration. PERICARDIUM Normal pericardium. No effusion. Other Information Study Quality: Fair Conclusion Overall LVEF is 65-70%. Normal LV size and mildly hyperdynamic function. Mild concentric hypertrophy. RV is normal size and function. Pacemaker wire in right heart. RVSP is mmHg. 23 mm Durant Nancy 3 Ultra bioprosthetic TAVR appears well seated with ni paravalular leaks. LAURIE is measured at 2.07 cmsq, Peak/mean gradients 21/11 mmHg, Peak velocity is measured at 229 m/sec, Mild mitral annular calcification without stenosis. Mild regurgitation. TV appears structurally normal with trace regurgitation. Normal PV without stenosis and mild insufficiency. Normal pericardium. No effusion.
[2025-03-07] MEDS: regadenoson 0.4mg/5ml syringe IV PRN (13:48)
[2025-03-07] MEDS: aminophylline 250mg/10ml inj. IV PRN (14:56)
--- NOTE | 2025-03-07 16:16 | RADIOLOGY REPORT ---
Procedure: NM NM MERCED SCAN Exam Date: 03/07/2025 12:48 PM Reason for study/Clinical History: CP Comparison Study: None Myocardial Perfusion Study with SPECT Technique: The patient received an intravenous injection of 8. mCi of technetium-99m sestamibi while at rest. After a short delay, SPECT tomographic images of the heart were obtained. The patient then went to the stress lab where they received an intravenous infusion of 0.4 mg lexiscan utilizing sta ndard protocol. 27.9 mCi of technetium-99m sestamibi was injected intravenously immediately after the start of the lexiscan infusion. Gated SPECT tomographic images of the heart were acquired and processed. 75 mg of aminophylline was administered for nausea and vomiting, dizziness. Findings: No reversible perfusion defect. End diastolic volume: 53 mL End systolic volume: 12 mL The left ventricular ejection fraction is 78 %. (normal greater than 50%) Impression: No reversible defect. The left ventricular ejection fraction is 78 %.
[2025-03-07] MEDS: ondansetron/PF 4mg/2ml inj IV PRN (19:11)
[2025-03-08 02:00] VITALS: BP 139/45; PULSE 62; RESP 17; TEMP 96.8; O2SAT 98
[2025-03-08 05:47] LABS: MEAN PLATELET VOLUME 8.6 FL (7.4-10.4); RED CELL DISTRIBUTION WIDTH 16.3 % (11.5-14.5)
[2025-03-08 06:00] VITALS: BP 119/37; PULSE 61; RESP 14; TEMP 97.1; O2SAT 98
[2025-03-08 06:06] LABS: CREATININE 0.57 MG/DL (0.40-0.90); TOTAL CARBON DIOXIDE 29.2 MMOL/L (24-32); eCRCL 62 ML/MIN; eGFR > 90 ML/MIN
[2025-03-08 08:50] VITALS: RESP 20
[2025-03-08 11:00] VITALS: BP 125/36; PULSE 62; RESP 18; TEMP 98.5; O2SAT 98
[2025-03-08] MEDS ORDERED: LOSA25TA41 PO (13:18)
[2025-03-08] MEDS ORDERED: ASPI-1071 PO (13:18)
[2025-03-08] MEDS ORDERED: ATOR20TA66 PO (13:18)
[2025-03-08] MEDS ORDERED: APIX5TAB3 PO (13:18)
--- NOTE | 2025-03-08 16:03 | PROGRESS NOTE- Residence ---
Progress Note - Resident Providers to CC Resident Creating Document: DEAN FENG NANCIE, RES ~ Antibiotic Timeout Antibiotic Ordered?: No Subjective Patient seen and examined at the bedside today. She denied any further episodes of shortness of breaths, chest pain, palpitations. No acute overnight events were reported. Objective Vital Signs Date Time Temp Pulse Resp B/P (MAP) Pulse Ox O2 Delivery O2 Flow Rate FiO2 03/08/25 11:00 98.5 62 18 125/36 (65) 98 Room Air 03/07/25 23:04 21 03/07/25 14:54 0.0 Result Diagram: 03/08/2544703/08/25447 General: Alert, awake, oriented, not in acute distress HEENT: PERRLA, no icterus, pallor, lymphadenopathy, carotid bruit Respiratory system: Bilateral vesicular breath sounds heard, no adventitious breath sounds CVS: S1-S2 heard, systolic murmur heard 2/6 in aortic area. GI: Soft, nontender, no organomegaly, no guarding/rigidity, bowel sounds present Neuro: No focal neurological deficits present Mental status exam: alert and consciousness, orientation, memory, speech - Cranial nerve test: Cranial nerves 2-12 intact - Motor system: Nutrition, Tone 3+, Power 5/5, no involuntary movements - Sensory system: Intact - Reflex testing: Biceps, triceps and knee reflexes 2+ - Cerebellar: Normal Extremities: No edema cyanosis clubbing/deformities Skin: Warm and dry Assessment Assessment 80 years old male with past medical history of Johan stenosis status post TAVR, atrial fibrillation, pacemaker, sleep apnea, asthma, bilateral knees and hip replacement, osteoporosis, fibromyalgia is admitted in the hospital for evaluation and management of acute chest pain. Plan Plan 1. Chest pain Most likely stable angina Serial trending of troponin-negative EKG a paced rhythm. Echocardiography showed left ventricular ejection fraction of 65-70% with a RVSP of 34. Lexiscan was negative for any reversible ischemic changes. LDL 65. Patient did not have any further episodes of chest pain. Continue home dose of aspirin 81 mg and atorvastatin 40 mg p.o. daily. 2. Paroxysmal atrial fibrillation Sick sinus syndrome status post pacemaker placement Telemetry monitoring showing a paced rhythm. Continue home sotalol 80 mg p.o. b.i.d. Continue Eliquis 5 mg p.o. b.i.d. 3. Hypertension Patient was found to have elevated blood pressures during the course of her hospitalization. Started her on losartan 25 mg p.o. daily. Continue close monitoring of the patient's vitals. Recommend following with her PCP as outpatient. 4. Asthma Not in any acute exacerbation. Continue home medications and management as per the primary care team. 5. Fibromyalgia Continue management as per the primary care team. CODE STATUS: Full code DVT prophylaxis: Eliquis GI prophylaxis: None Diet: Heart healthy diet Disposition: Anticipate discharge home in the next 12-24 hours. Dean Feng MD Internal Medicine Resident, PGY-3 Patient seen and examined by Dr. Jacob DUDLEY Patient to follow up with PMD and me. Date of Service: Mar 08, 2025 Billing Provider: KIMBERLEY REID MD, SURYA PRATIK, RES Mar 08, 2025 16:03 KIMBERLEY REID MD Mar 08, 2025 17:49
--- NOTE | 2025-03-08 16:23 | DISCHARGE SUMMARY-Residence ---
Discharge Summary Providers to CC Resident Creating Document: ANNE-MARIE ZHENG RES ~ Discharge Summary Admission Diagnosis: CHEST PAIN Hospital Course DATE OF ADMISSION: 03/07/25 DATE OF DISCHARGE: 03/08/25 Imaging- Chest x-ray Lungs: Clear Pleura: No effusion. No pneumothorax. Cardiomediastinal contours: Unremarkable Bones: Unremarkable Echocardiogram- Overall LVEF is 65-70%. Normal LV size and mildly hyperdynamic function. Mild concentric hypertrophy. RV is normal size and function. Pacemaker wire in right heart. RVSP is mmHg. 23 mm Durant Nancy 3 Ultra bioprosthetic TAVR appears well seated with ni paravalular leaks. LAURIE is measured at 2.07 cmsq, Peak/mean gradients 21/11 mmHg, Peak velocity is measured at 229 m/sec, Mild mitral annular calcification without stenosis. Mild regurgitation. TV appears structurally normal with trace regurgitation. Normal PV without stenosis and mild insufficiency. Normal pericardium. No effusion. Lexiscan- No reversible defect. The left ventricular ejection fraction is 78 %. Discharge Diagnosis\Comment: Chest pain Stable angina Atrial fibrillation Asthma, currently well controlled Sleep apnea Fibromyalgia Dry eyes Operations\Procedures: None Consultants: Cardiology Complications: None Condition on DC: Stable New Medications: Apixaban (Eliquis) 5 Mg Tablet 5 MG PO BID, #60 TAB Aspirin (Ecotrin*) 81 Mg Tablet.dr 1 TAB PO DAILY, #30 TAB.SR Atorvastatin Calcium (Atorvastatin Calcium) 20 Mg Tablet 40 MG PO DAILY, #60 TAB Losartan Potassium (Losartan Potassium) 25 Mg Tablet 25 MG PO DAILY, #30 TAB Continued Medications: Albuterol Sulfate Nebs* (Proventil Nebs*) 2.5 Mg/0.5 Ml Vial.neb 2.5 MG IH Q4H PRN for SOB or wheezing, VIAL Alendronate Sodium* (Fosamax*) 70 Mg Tablet 1 TAB PO Q7D for 28 Days, #4 TAB in the morning, at least 30 minutes before the first food, beverage, or medication of the day Amitriptyline Hcl* (Elavil*) 50 Mg Tablet 1 TAB PO HS, TAB Calcium Carbonate* (Oscal*) 500 Mg Tablet 1 TAB PO DAILY, TAB Docosahexanoic Acid/Epa (Fish Oil 1,000 Mg Softgel) 1 Each Capsule 1 CAP PO DAILY for 30 Days, #90 CAP 0 Refills WITH MEALS Ergocalciferol (Vitamin D2) (Vitamin D2) 1,250 Mcg Capsule 1 CAP PO Q7D for 28 Days, #4 CAP 0 Refills Ferrous Gluconate (Iron) 236 Mg Tablet 1 TAB PO DAILY for 30 Days, #30 TAB 0 Refills Lorazepam (Ativan) 1 Mg Tablet 1 TAB PO HS PRN for sleep for 30 Days, #90 TAB Multivitamin (Daily Value) 1 Each Tablet 1 TAB PO DAILY for 30 Days, #30 TAB 0 Refills Sapphire-3 Acid Ethyl Esters* (Lovaza*) 1 Gm Capsule 1 CAP PO DAILY, #120 CAP 5 Refills Pantoprazole Sodium (Pantoprazole Sodium) 40 Mg Tablet.dr 1 TAB PO DAILY for 30 Days, #30 TAB Sotalol HCl (Sotalol) 80 Mg Tablet 1 TAB PO Q12H for 30 Days, #60 TAB 0 Refills Discontinued Medications: Aspirin* (Aspirin*) 325 Mg Tablet 1 TAB PO DAILY for 30 Days, #30 TAB Discharge Summary: An 80-year-old female patient with a medical history of asthma, atrial fibrillation (on Eliquis), TAVR, and a pacemaker was transferred from [facility]. According to the patient, she experienced shortness of breath, palpitations, and chest pain while driving, and she also felt lightheaded. She returned home, hoping her symptoms would improve, but while cooking, she experienced the pain again and decided to visit the emergency department at [facility]. ED course in [facility]: The patient reported chest pain, rating it as 6/10, with radiation to her left shoulder and she was given two sublingual nitrates, which relieved her pain. She also received a full dose of aspirin in the emergency department. The evaluation for her chest pain included serial troponin tests, which were negative, and an ECG that showed no acute changes. A chest X-ray reported cardiomegaly with no obvious effusion or infiltrates. The patient expressed a desire to be transferred to our hospital because she felt more comfortable with Dr. Iqbal, her surface room shop optician. Presentation to our hospital, patient denied any chest pain on arrival. Serial troponins were negative. As per patient, she underwent stress testing a Dr. Iqbal's clinic three months ago which was negative. The patient lives alone in her house and normally mobilizes independently. Her primary care physician is from [facility]. Course during hospital stay- On admission patient's troponins were negative. Her chest pain was likely due to stable angina. Patient received full dose of aspirin 325 mg and 2 doses of nitroglycerin which relieved her pain. ProBNP was normal. EKG showed prolonged MD interval and atrial paced complexes, no acute ST segment elevation. We put the patient on telemetry monitoring and initiated her on nitroglycerin p.r.n. cardiology was consulted. We continued sotalol 80 mg and Eliquis 5 mg for her atrial fibrillation. For hypertension we started her on losartan 25 mg. Patient underwent Lexiscan which was negative. Patient had no other episodes of chest pain during her hospital stay. Patient was stable at the time discharge. Vital Signs Date Time Temp Pulse Resp B/P (MAP) Pulse Ox O2 Delivery O2 Flow Rate FiO2 03/08/25 11:00 98.5 62 18 125/36 (65) 98 Room Air 03/07/25 23:04 21 03/07/25 14:54 0.0 Laboratory Tests Test 03/07/25 03:24 03/07/25 06:52 03/08/25 04:48 White Blood Count 6.6 X10'3 6.1 X10'3 Red Blood Count 3.41 X10'6 3.44 X10'6 Hemoglobin 10.5 g/dl 10.4 g/dl Hematocrit 31.8 % 32.0 % Mean Corpuscular Volume 93.0 FL 93.1 FL Mean Corpuscular Hemoglobin 30.6 PG 30.1 PG Mean Corpuscular Hemoglobin Concent 32.9 g/dL 32.3 g/dL Red Cell Distribution Width 16.6 % 16.3 % Platelet Count 215 X10'3 210 X10'3 Mean Platelet Volume 8.3 FL 8.6 FL Neutrophils (%) (Auto) 57.3 % 60.2 % Lymphocytes (%) (Auto) 31.8 % 28.1 % Monocytes (%) (Auto) 8.7 % 9.3 % Eosinophils (%) (Auto) 1.1 % 1.6 % Basophils (%) (Auto) 1.1 % 0.8 % Neutrophils # (Auto) 3.8 X10'3 3.7 X10'3 Lymphocytes # (Auto) 2.1 X10'3 1.7 X10'3 Monocytes # (Auto) 0.6 X10'3 0.6 X10'3 Eosinophils # (Auto) 0.1 X10'3 0.1 X10'3 Basophils # (Auto) 0.1 X10'3 0.0 X10'3 CBC Comment Sodium Level 145 MMOL/L 142 MMOL/L Potassium Level 3.9 MMOL/L 3.9 MMOL/L 3.9 MMOL/L Chloride Level 111 MMOL/L 108 MMOL/L Carbon Dioxide Level 30.9 MMOL/L 29.2 MMOL/L Anion Gap 3 5 Blood Urea Nitrogen 7 MG/DL 10 MG/DL Creatinine 0.64 MG/DL 0.57 MG/DL Estimated GFR/1.73 m2 89 ML/MIN > 90 ML/MIN BUN/Creatinine Ratio 10.9 17.5 Glucose Level 98 MG/DL 87 MG/DL Calcium Level 7.9 MG/DL 8.2 MG/DL Troponin I High Sensitivity 13 ng/L 13 ng/L Pro-B-Type Natriuretic Peptide 328 PG/ML Albumin 2.6 G/DL 2.4 G/DL Triglycerides Level 92 MG/DL Cholesterol Level 120 MG/DL LDL Cholesterol 65 MG/DL HDL Cholesterol 43 MG/DL Cholesterol/HDL Ratio 2.8 Chemistry Comments Magnesium Level 2.3 MG/DL 2.1 MG/DL Troponin I High Sens Percent Delta 0 % Troponin I Hi Sens Absolute Change 0 ng/L Total Bilirubin 0.5 MG/DL Aspartate Amino Transf (AST/SGOT) 25 U/L Alanine Aminotransferase (ALT/SGPT) 25 U/L Alkaline Phosphatase 93 IU/L Total Protein 6.2 G/DL Globulin 3.8 G/DL Albumin/Globulin Ratio 0.6 Examination of the patient at the time of discharge- General: Alert, awake, oriented, not in acute distress HEENT: PERRLA, no icterus, pallor, lymphadenopathy, carotid bruit Respiratory system: Bilateral vesicular breath sounds heard, no adventitious breath sounds CVS: S1-S2 heard, systolic murmur heard 2/6 in aortic area. GI: Soft, nontender, no organomegaly, no guarding/rigidity, bowel sounds present Neuro: No focal neurological deficits present Mental status exam: alert and consciousness, orientation, memory, speech - Cranial nerve test: Cranial nerves 2-12 intact - Motor system: Nutrition, Tone 3+, Power 5/5, no involuntary movements - Sensory system: Intact - Reflex testing: Biceps, triceps and knee reflexes 2+ - Cerebellar: Normal Extremities: No edema cyanosis clubbing/deformities Skin: Warm and dry Discharge medications- New Medications: Apixaban (Eliquis) 5 Mg Tablet Aspirin (Ecotrin*) 81 Mg Tablet. Atorvastatin Calcium 20 Mg Tablet Losartan Potassium 25 Mg Tablet Continued Medications: Albuterol Sulfate Nebs* (Proventil Nebs*) 2.5 Mg/0.5 Ml Vial.neb Alendronate Sodium* (Fosamax*) 70 Mg Tablet in the morning, at least 30 minutes before the first food, beverage, or medication of the day Amitriptyline Hcl* (Elavil*) 50 Mg Tablet Calcium Carbonate* (Oscal*) 500 Mg Tablet Docosahexanoic Acid/Epa (Fish Oil 1,000 Mg Softgel) 1 Each Capsule WITH MEALS Ergocalciferol (Vitamin D2) (Vitamin D2) 1,250 Mcg Capsule Ferrous Gluconate (Iron) 236 Mg Tablet Lorazepam (Ativan) 1 Mg Tablet Multivitamin (Daily Value) 1 Each Tablet Sapphire-3 Acid Ethyl Esters* (Lovaza*) 1 Gm Capsule Pantoprazole Sodium 40 Mg Tablet. Sotalol HCl (Sotalol) 80 Mg Tablet Discontinued Medications: Aspirin* 325 Mg Tablet Instructions by the doctor at the time of discharge- Please follow up with your PCP in 1 week. We have given you a new antihypertensive medication Losartan 25mg as per cardiology recommendations. Please take 1 tablet daily. Stop taking when your systolic bp drops below 100. Keep checking your BP regularly at home. We have changed the dose of aspirin from 325 mg to 81 mg as per cardiology recommendations. We are starting you on a new medication Eliquis 5mg daily. Please make an appointment with your surface room shop optician soon. *Problems/Diagnosis: (1) Chest pain Status: Acute Total Time Spent on D/C: > 30 Minutes Date of Service: Mar 08, 2025 Billing Provider: MARIUSZ COLLAZO MD Common Visit Codes: 47612-ZUV/OBS DISCH DAY >30min ANNE-MARIE ZHENG, RES Mar 08, 2025 15:54 MARIUSZ COLLAZO MD Mar 10, 2025 16:48
== END 2025-03-08 16:07 | disposition home or self-care (01) ==
LOC: ER 02:34 → UNDOADMIN 04:20 → PCU 3S 04:20 → ED HOLD 04:20 → EDBEDREQ 05:50 → ED HOLD 07:00 → PCU 3S 07:00
PROVIDERS: ADMIT Internal Medicine; ATTEND Internal Medicine
DX: I20.9 Angina pectoris, unspecified (principal); I48.91 Unspecified atrial fibrillation; R07.89 Other chest pain; J45.909 Unspecified asthma, uncomplicated; G47.30 Sleep apnea, unspecified; M79.7 Fibromyalgia; M81.0 Age-related osteoporosis without current pathological fracture; R60.1 Generalized edema; Z79.899 Other long term (current) drug therapy; Z98.890 Other specified postprocedural states
CPT/HCPCS: 78452; 80048; 80053; 80061; 83735; 83880; 84132; 84484; 93005; 93017; 93306; 94640; 94660; 96374; 96375; 99285; A9500; G0378; 36415; 71045; 85025; 87081; 94760; J0280; J2405; J2785